=== PATIENT | male | born 1995 | race Caucasian/White ===

== ENCOUNTER 2022-12-22 09:44 | Outpatient (CLI) | payer BC, SELFPAY ==
--- NOTE | ~2022-12-22 | XR_ITS ---
EXAMINATION: XR chest 2V Exam Date/Time: 12/22/2022 9:53 GAS FITTER HISTORY: R05.3 - Chronic cough, NASAL CONGESTION Comparison: None available. RESULT: Lines, tubes, and devices: None. Lungs and pleura: Streaky and subsegmental opacities in the left lung base. Cardiomediastinal silhouette: Right medial and anterior cystic collection, possible hiatal or diaphr agmatic hernia containing a portion of stomach or bowel. Otherwise normal mediastinum. Other: No acute osseous or upper abdominal finding. IMPRESSION: Left basilar opacities may reflect atelectasis, or the consolidation of infection. Presumed diaphragm atic/hiatal hernia, given the somewhat unusual location and appearance, recommend low-dose noncontras t CT of the chest for further characterization and to exclude a lung or mediastinal mass. Reviewed, dictated and finalized at location K. FITTER IMPRESSION: Left basilar opacities may reflect atelectasis, or the consolidation of infecti on. Presumed diaphragmatic/hiatal hernia, given the somewhat unusual location a nd appearance, recommend low-dose noncontrast CT of the chest for further kenny cterization and to exclude a lung or mediastinal mass.
--- NOTE | ~2022-12-22 | XR_ITS ---
XR sinus min 3V DATE: 12/22/2022 10:06 INDICATION: Nasal congestion, chronic cough TECHNIQUE: donald Saucedo, lateral, submental vertical views COMPARISON: None FINDINGS: The maxillary sinuses and frontal sinuses appear cloudy some soft tissue density overlying the sphenoid sinuses bilaterally, suggesting extensive sinusitis. The mastoid air cells are normally developed and aerated. IMPRESSION: Paranasal sinus disease involving particularly the maxillary sinuses, with probable invol vement of frontal and possibly sphenoid sinuses as well Reviewed, dictated and finalized at location L. CAL DOSIMETRIST IMPRESSION: Paranasal sinus disease involving particularly the maxillary sinuse s, with probable involvement of frontal and possibly sphenoid sinuses as well
== END 2022-12-22 09:45 | disposition home or self-care (01) ==
LOC: ANHLAB 09:47 → ANHIMG 09:48
PROVIDERS: PCP Internal Medicine; Visit Provider Internal Medicine
DX: R05.3 Chronic cough (principal); J34.89 Other specified disorders of nose and nasal sinuses; R91.8 Other nonspecific abnormal finding of lung field
CPT/HCPCS: 70220; 71046

== ENCOUNTER 2023-01-13 07:43 | Outpatient (CLI) | payer BC, SELFPAY ==
--- NOTE | ~2023-01-13 | CT_ITS ---
EXAMINATION: CT diagnostic chest wo con DATE: 01/13/2023 08:10 INDICATION: Abnormal 12/22/2022 chest radiographic examination. Chronic cough. Nasal congestion. TECHNIQUE: Computed tomography (CT) of the chest was performed without intravenous contrast. Automate d exposure control and iterative reconstruction technique were employed. Exam dose: 449.98 mGy-cm to lupe exam DLP. COMPARISON: 12/22/2022 2 view chest FINDINGS: There is herniation of colon along the right lateral margin of the heart, which accounts fo r the 12/22/2022 chest radiographic abnormality. Normal heart size. No pericardial or pleural effusion. No hilar or mediastinal mass lesion or lymphad enopathy. No thoracic aortic aneurysm. There is mild atelectasis at the left lung base. The lungs are otherwise clear of infiltrate or conso lidation. Small sliding hiatal hernia. Normal adrenal glands. Numerous hyperdense cysts of the right kidney of variable size. Smaller hyperdense cysts of the left kidney and left renal atrophy/scarring. Left and right IVC, anatomic variant. Included skeletal structures are unremarkable. IMPRESSION: Herniated colon along the medial aspect of right heart Small sliding hiatal hernia Mild atelectasis at the left lung base Bilateral hyperdense renal cysts Left renal atrophy/scarring Reviewed, dictated and finalized at [facility] A. Reviewed, dictated and finalized at location B.
--- NOTE | ~2023-01-13 | CT_ITS ---
EXAMINATION: CT sinus wo con DATE: 01/13/2023 08:10 INDICATION: Nasal congestion, chronic cough TECHNIQUE: Computed tomography (CT) of the paranasal sinuses was performed without contrast. Iterativ e reconstruction technique was employed. Exam dose: 330.84 mGy-cm total exam DLP. COMPARISON: 12/22/2022 sinuses FINDINGS: There is prominent leftward deviation of the nasal septum. There is prominent soft tissue swelling of the middle and inferior nasal turbinates. The ostiomeatal units are opacified bilaterally. There is nearly complete opacification of the frontal sinuses, ethmoid air cells and maxillary sinuse s and right sphenoid sinus and moderate mucoperiosteal thickening of the left sphenoid sinus. The mastoid air cells are normally developed and aerated bilaterally. IMPRESSION: Prominent leftward deviation of nasal septum Opacification of ostiomeatal units bilaterally Pansinusitis Reviewed, dictated and finalized at [facility]. Reviewed, dictated and finalized at location B.
== END 2023-01-13 07:44 | disposition home or self-care (01) ==
LOC: ANHIMG 07:44
PROVIDERS: PCP Internal Medicine; Visit Provider Internal Medicine
DX: R93.89 Abnormal findings on diagnostic imaging of other specified body structures (principal); R93.0 Abnormal findings on diagnostic imaging of skull and head, not elsewhere classified; K44.9 Diaphragmatic hernia without obstruction or gangrene; R91.8 Other nonspecific abnormal finding of lung field; J34.2 Deviated nasal septum
CPT/HCPCS: 70486; 71250

== ENCOUNTER 2023-06-18 13:10 | Outpatient (CLI) | payer BC, SELFPAY ==
--- NOTE | ~2023-06-18 | XR_ITS ---
EXAMINATION: XR UGIAC w barium swallow DATE: 06/18/2023 14:24 INDICATION: Cough and shortness of breath TECHNIQUE: The patient drank thick barium, gas-producing crystals, and thin barium. A total of 1459 f luoroscopic images of the esophagus, stomach, and proximal small bowel were obtained. Fluoroscopy exp osure time was 2.5 minutes. COMPARISON: None. FINDINGS: The esophagus is normal without mass or stricture. Esophageal motility is normal. There is a small sliding-type hiatal hernia. There is small amount of reflux first into the hiatal hernia with minimal more proximal gastroesophageal reflux with provocative maneuvers. The stomach is normal. The small bowel appears normal however the duodenojejunal junction is positioned caudal to the level of the duodenal bulb consistent with likely developmental intestinal malrotation. IMPRESSION: 1. Small sliding-type hiatal hernia with small amount of gastroesophageal reflux with provocative man euvers. 2. Likely developmental intestinal malrotation with the duodenojejunal junction in the left upper marilu drant but significantly caudal to the level of the duodenal bulb. Reviewed, dictated and finalized at location A. IMPRESSION: 1. Small sliding-type hiatal hernia with small amount of gastroesophageal reflu x with provocative maneuvers. 2. Likely developmental intestinal malrotation with the duodenojejunal junction in the left upper quadrant but significantly caudal to the level of the duoden al bulb.
== END 2023-06-18 13:11 | disposition home or self-care (01) ==
LOC: ANHIMG 13:10
PROVIDERS: PCP Internal Medicine; Visit Provider Internal Medicine
DX: R05.3 Chronic cough (principal); K21.9 Gastro-esophageal reflux disease without esophagitis; K44.9 Diaphragmatic hernia without obstruction or gangrene
CPT/HCPCS: 74246

== ENCOUNTER 2023-07-02 15:00 | Outpatient (CLI) | payer BC, SELFPAY ==
--- NOTE | 2023-07-05 13:09 | WPDPFTINT ---
PFT Procedure Performed PFT Procedure Performed Spirometry with Pre/Post Bronchodilator Plethysmography (Lung Vol) Diffusing Cap (DLCO) Flow Vol Loop PFT Interpretation This is a pulmonary function test with pre and post-bronchodilator spirometry, plethysmography and diffusing capacity. The test was performed and results interpreted in accordance with the 2019 and 2005 ATS/ERS Task Force guidelines respectively using the Global Lung Function Initiative-2012 reference equations. Patient demonstrated good effort and cooperation. Reproducibility criteria were met. The quality of the pre bronchodilator spirometry maneuver was Grade A and post bronchodilator spirometry maneuver was Grade B. Findings: Spirometry: The contour the inspiratory flow tracing is normal. The contour the inspiratory flow tracing is truncated. The pre bronchodilator FVC is 3.77 L, 71% predicted. The pre bronchodilator FEV1 is 3.04 L, 68% predicted. The pre bronchodilator FEV1: FVC ratio is 81%. The post bronchodilator FVC is 3.42 L, representing a 9% decrease. The post bronchodilator FEV1 is 2.89 L, representing a 5% decrease. The post bronchodilator FEV1: FVC ratio was 85%. Plethysmography: The total lung capacity is 4.97 L, 75% predicted. The functional residual capacity is 1.89 L, 59% predicted. The residual volume is 1.20 L, 81% predicted. Diffusing capacity: The diffusing capacity unadjusted for hemoglobin and carboxyhemoglobin is 15.5, 43% predicted. The diffusing capacity adjusted for alveolar volume is 5.83, 109% predicted. Impression: There is a moderate restrictive ventilatory abnormality. The spirometry is normal without evidence of an obstructive abnormality. There is no significant improvement after inhaling a single dose of albuterol. The diffusing capacity unadjusted for hemoglobin and carboxyhemoglobin is moderately decreased and normalizes when adjusted for alveolar volume. There are no prior studies for comparison
== END 2023-07-02 15:01 | disposition home or self-care (01) ==
LOC: ANHPFT 15:01
PROVIDERS: PCP Internal Medicine; Visit Provider Internal Medicine
DX: R05.3 Chronic cough (principal); R94.2 Abnormal results of pulmonary function studies
CPT/HCPCS: 94060; 94726; 94729

== ENCOUNTER 2024-08-15 08:24 | Outpatient (CLI) | payer BC, SELFPAY ==
--- NOTE | ~2024-08-15 | XR_ITS ---
EXAMINATION: XR chest 2V DATE: 08/15/2024 08:39 INDICATION: 2 months of cough TECHNIQUE: PA and lateral views of the chest were obtained. COMPARISON: Chest radiograph dated 12/22/[address] dated 01/13/2023 FINDINGS: Chronic streaky left basilar opacities with bronchial wall thickening corresponding to scarring and b ronchiectasis on the prior CT. No new airspace opacities, pulmonary edema, pleural effusion or pneumo thorax. Again seen is mottled stool within a short herniated segment of colon at the anteromedial rig ht lung base projecting alongside the right side of the right atrium. Heart size is normal. Mild thor acic spondylosis. IMPRESSION: 1. Stable appearance of chronic scarring and bronchiectasis at the left lung base. Difficult to exclu de superimposed pneumonia. 2. Unchanged short herniated segment of colon at the anteromedial right lung base. Reviewed, dictated and finalized at location A. IMPRESSION: 1. Stable appearance of chronic scarring and bronchiectasis at the left lung ba se. Difficult to exclude superimposed pneumonia. 2. Unchanged short herniated segment of colon at the anteromedial right lung ba se.
== END 2024-08-15 08:25 | disposition home or self-care (01) ==
PROVIDERS: PCP Internal Medicine; Visit Provider Internal Medicine
DX: J98.4 Other disorders of lung (principal); J47.9 Bronchiectasis, uncomplicated; K46.9 Unspecified abdominal hernia without obstruction or gangrene
CPT/HCPCS: 71046